=== PATIENT | male | born 1965 | race African-American/Black ===

== ENCOUNTER 2017-08-29 05:52 | Day surgery (SDC) | payer BC ==
[~2017-08-29 05:52] MED LIST: PEPCID PO NR; VERSED IV NR
[2017-08-29] MEDS ORDERED: NACL 0.9% 1000 ML 1,000 ML IV SCH (06:00)
[2017-08-29] MEDS ORDERED: ANCEF/STERILE WATER 2 GM/20 ML 2 GM/20 ML SYRINGE IV NR (06:00)
[2017-08-29] MEDS ORDERED: NACL BACTERIOSTATIC INFILTRATI ONE (06:29)
[2017-08-29 06:56] LABS: Basophils % (Auto) 0.6 % (0.0-1.8); Hematocrit 40.4 % (35.5-45.6); Hemoglobin 13.6 gm/dl (11.8-15.2); Mean Corpuscular HGB Conc 34 % (32-34); Mean Corpuscular Hemoglobin 30 pg (28-32); Mean Corpuscular Volume 90 fl (84-94); Platelet Count 150 K/mm3 (140-440); Red Blood Count 4.51 M/mm3 (3.65-5.03); Red Cell Distribution Width 13.4 % (13.2-15.2)
[2017-08-29 07:04] LABS: INR 0.97 (0.87-1.13)
[2017-08-29 07:07] LABS: Calcium 8.1 mg/dL (8.4-10.2); Chloride 97.5 mmol/L (98-107); Potassium 4.5 mmol/L (3.6-5.0)
[2017-08-29] MEDS ORDERED: HEPARIN 10,000 UNITS/10 ML ONE ×2 (07:18→10:23)
[2017-08-29] MEDS ORDERED: XYLOCAINE 1% 20 mL ONE (07:18)
[2017-08-29] MEDS ORDERED: NACL 0.9% 500 ML 500 ML ONE (07:19)
[2017-08-29] MEDS ORDERED: MARCAINE-EPI/PF 0.5%-1:200,000 INFILTRATI ONE (07:19)
[2017-08-29] MEDS ORDERED: DIPRIVAN 10 MG/ML IV ONE ×3 (07:20→10:18)
[2017-08-29] MEDS ORDERED: PAPAVERINE ONE (07:20)
[2017-08-29] MEDS ORDERED: PROTAMINE SULFATE ONE (07:20)
[2017-08-29] MEDS ORDERED: DILAUDID ONE (07:23)
--- NOTE | 2017-08-29 07:32 | Anesthesia Consultation ---
Anesthesia Consult and Med Hx Date of service: 08/29/17 - Airway Anesthetic Teeth Evaluation: Dentures ROM Head & Neck: Adequate Mental/Hyoid Distance: Adequate Mallampati Class: Class II Intubation Access Assessment: Probably Good - Pulmonary Exam CTA: Yes - Cardiac Exam Cardiac Exam: RRR - Pre-Operative Health Status ASA Pre-Surgery Classification: ASA4 Proposed Anesthetic Plan: General - Pulmonary Hx Smoking: Yes (STOPPED X 3 YRS) SOB: Yes (SOB WITH ACTIVITY) Hx Sleep Apnea: No (SUKUMAR PRE SCREEN HIGH RISK) - Cardiovascular System Hx Hypertension: Yes (X 10 YRS) Hx Peripheral Vascular Disease: Yes (CARLOS LEGS WITH PAIN) - Central Nervous System CVA: Yes (CVA-VS TIA / NO DEFICITS) - Endocrine Hx End Stage Renal Disease: Yes - Other Systems Hx Cancer: No
--- NOTE | 2017-08-29 07:32 | Anesthesia Day of Surgery ---
Anesthesia Day of Surgery - Day of Surgery Patient Examined: Yes Patient H&P Reviewed: Yes Patient is NPO: Yes Beta Blockers: Yes
[2017-08-29] MEDS ORDERED: LOPRESSOR PO ONE (07:33)
[2017-08-29] MEDS ORDERED: ZOFRAN IV PRN (07:49)
[2017-08-29] MEDS ORDERED: SODIUM BICARBONATE ONE (08:32)
[2017-08-29] MEDS ORDERED: XYLOCAINE 1%/ EPI 1:100,000 INFILTRATI ONE ×3 (08:32→09:22)
[2017-08-29] MEDS ORDERED: HEPARIN 10,000 UNITS/10 ML 2,000 UNIT in NACL 0.9% 500 ML 500 ML IR ONE (08:34)
[2017-08-29] MEDS ORDERED: VERSED ONE (08:48)
[2017-08-29] MEDS ORDERED: NACL 0.9% IR ONE (09:22)
[2017-08-29] MEDS ORDERED: SODIUM BICARBONATE IV ONE (09:22)
[2017-08-29] MEDS ORDERED: XYLOCAINE MPF 2% ONE (10:20)
[2017-08-29] MEDS ORDERED: APRESOLINE ONE (10:29)
--- NOTE | 2017-08-29 10:34 | Short Stay Summary ---
Short Stay Documentation Date of service: 08/29/17 - History H&P: obtained from office - Allergies and Medications Current Medications: Allergies No Known Allergies Allergy (Verified 08/25/17 16:46) Home Medications Medication Instructions Recorded Confirmed Last Taken Type Aspirin [Children's Aspirin] 81 mg PO DAILY 08/25/17 08/25/17 08/28/17 History Atenolol [Tenormin] 50 mg PO DAILY 08/25/17 08/25/17 08/28/17 19:00 History Insulin Glargine [Lantus] 0 units SQ QHS 08/25/17 08/25/17 Unknown History Insulin Lispro [Humalog] 0 unit SQ DAILY 08/25/17 08/29/17 08/28/17 History Lisinopril [Zestril] 40 mg PO DAILY 08/25/17 08/25/17 08/28/17 19:00 History Lovastatin [Altoprev] 20 mg PO QPM 08/25/17 08/25/17 08/28/17 History Metoprolol [Lopressor TAB] 50 mg PO DAILY 08/25/17 08/25/17 08/28/17 History NIFEdipine [Nifedipine ER] 90 mg PO DAILY 08/25/17 08/25/17 08/28/17 19:00 History Tamsulosin [Flomax] 0.4 mg PO QDAY 08/25/17 08/29/17 Unknown History hydrALAZINE [Apresoline] 25 mg PO DAILY 08/25/17 08/25/17 Unknown History Active Medications Famotidine (Pepcid) 20 mg PO PREOP NR Stop: 08/29/17 23:59 Last Admin: 08/29/17 06:47 Dose: 20 mg Hydromorphone HCl (Dilaudid) 0.5 mg IV Q10MIN PRN PRN Reason: Pain , Severe (7-10) Stop: 08/29/17 18:00 Cefazolin Sodium (Ancef/Sterile Water 2 Gm/20 Ml) 2 gm in 20 mls @ 80 mls/hr IV PREOP NR PRN Reason: Protocol Stop: 08/29/17 23:59 Sodium Chloride (Nacl 0.9% 1000 Ml) 1,000 mls @ 42 mls/hr IV DIRECT AJAY Last Admin: 08/29/17 06:40 Dose: 42 mls/hr Midazolam HCl (Versed) 2 mg IV PREOP NR Stop: 08/29/17 23:59 Last Admin: 08/29/17 07:45 Dose: 2 mg Ondansetron HCl (Zofran) 4 mg IV ONCE PRN PRN Reason: Nausea And Vomiting Stop: 08/29/17 18:00 - Brief post op/procedure progress note Date of procedure: 08/29/17 Pre-op diagnosis: ESRD Post-op diagnosis: same Procedure: 1. Creation of left brachio-cephalic fistula Anesthesia: MAC Findings: Patent fistula, small caliber upper arm cephalic vein Surgeon: SEBAS GILES Estimated blood loss: minimal Pathology: none Condition: stable - Hospital course Hospital course: Outpatient surgery, home after recovery - Disposition Condition at discharge: Good Disposition: DC-01 TO HOME OR SELFCARE Short Stay Discharge Plan Activity: no restrictions (elevate arm on pillows, use sponge ball to maintain range of motion) Wound: open to air, keep clean and dry Additional Instructions: call for problems Follow up with: HAMILTON CRUZ MD [Primary Care Provider] - 7 Days
[2017-08-29] MEDS: DILAUDID IV PRN ×2 (10:45→10:55)
--- NOTE | 2017-08-29 11:25 | Operative Report ---
PREOPERATIVE DIAGNOSES: End-stage renal disease, need for permanent dialysis access. POSTOPERATIVE DIAGNOSES: End-stage renal disease, need for permanent dialysis access. PROCEDURE: Creation of left brachiocephalic fistula. SURGEON: Dr. Jeremy Edwards. COMPLICATIONS: None. INDICATIONS: This patient uses a Perm-A-Cath for dialysis. He needs permanent dialysis access. He was brought to the surgery for this purpose. FINDINGS: Small caliber cephalic vein, which was dilated with saline and Rodger catheter. It appeared to be acceptable structure for fistula creation. DETAILS OF PROCEDURE: Consent was obtained. The patient was taken to the operating room and placed in supine position. Appropriate levels of anesthesia were provided. The patient's arm was prepped and draped in sterile fashion. Prior to this, we evaluated the arm for the presence of a suitable cephalic vein for fistula creation. The forearm veins were small. The basilic vein was small. As a result, the upper arm cephalic vein sites, we made an incision on the upper part of the lower arm and dissected down through the subcutaneous tissue. We identified the cephalic vein, which appeared to be a suitable structure anatomically. We ligated the distal continuation and a branch to the deep system. We then exposed the brachial artery through the brachial sheath. The radial and ulnar arteries were controlled as well as the inflow. We then prepared the vein for an anastomosis. Heparin was administered. The vein was trimmed for an appropriate fit. We created an arteriotomy after control. We then performed an end-to-side anastomosis using 6-0 Prolene. After this was done, we released the control and felt the palpable thrill through the fistula. There was a palpable radial pulse. Hemostasis was maintained using QuikClot, which was removed from the patient's body and electrocautery. No further intervention was necessary at this point, we were ready for closure. 3-0 Vicryl was used to close the wound and the skin was reapproximated using 4-0 Monocryl. We then applied Dermabond and this concluded the case. The patient was awakened from anesthesia and taken to the recovery room having suffered no complications. JOB# [id number] ABDI/NTS
--- NOTE | 2017-08-29 12:03 | Post Anesthesia Evaluation ---
- Post Anesthesia Evaluation Patient Participated: Yes Airway Patent: Yes Stable Respiratory Function: Yes Nausea/Vomiting: No Temp > 96.8F: Yes Pain Manageable: Yes Adequeate Hydration: Yes Anesthesia Complications: No Patient on Ventilator: No
[2017-08-29] MEDS ORDERED: PERCOCET 5/325 PO ONE (12:06)
[2017-08-29] MEDS ORDERED: REGLAN PO ONE (13:37)
[2017-08-29 20:08] VITALS: BP 164/87
== END 2017-08-29 14:10 | disposition home or self-care (01) ==
LOC: OR 05:52
PROVIDERS: ATTEND Surgery Vascular Surgery
DX: I12.0 Hypertensive chronic kidney disease with stage 5 chronic kidney disease or end stage renal disease (principal); E11.22 Type 2 diabetes mellitus with diabetic chronic kidney disease; E78.5 Hyperlipidemia, unspecified; N18.6 End stage renal disease; Z87.891 Personal history of nicotine dependence; Z86.73 Personal history of transient ischemic attack (TIA), and cerebral infarction without residual deficits; Z98.890 Other specified postprocedural states
CPT/HCPCS: 36415; 36821; 80048; 82962; 85025; 85610; C1757; J0360; J0690; J1170; J1644; J2250; J2405; J2704; J7030; J7040; J2440; J2720